=== PATIENT | female | born 1960 | race Caucasian/White ===

== ENCOUNTER → 2019-12-19 14:50 | Outpatient (CLI) | payer OTHER, SELFPAY ==
--- NOTE | ~2019-12-19 | MM_ITS ---
EXAMINATION: MM screening too BI w lauren HISTORY: Screening mammogram TECHNIQUE: Craniocaudal and mediolateral oblique 3-D tomosynthesis images were obtained and synthetic 2-D images were generated. CAD analysis was submitted and interpreted. COMPARISON: 10/11/2018, 09/15/2017, 07/06/2016 bilateral digital screening mammogram examinations BREAST PARENCHYMAL COMPOSITION: There are scattered areas of fibroglandular density. FINDINGS: Circumscribed 5 mm mass at mid to posterior depth in the outer mid right breast (craniocaud al Tomosynthesis image 25/71). Circumscribed approximately 7 mm mass in the lower inner quadrant of the right breast (critical Tomos ynthesis image 63/84) Otherwise there is no evidence of suspicious mass, calcification, or architectural distortion to sugg est malignancy in either breast. There has been no suspicious interval change. IMPRESSION: 1. Right breast masses 2. Diagnostic right mammogram and right breast ultrasound examination are recommended. BI-RADS Category 0: Incomplete: Needs additional imaging evaluation. Reviewed, dictated and finalized at location A. IMPRESSION: 1. Right breast masses 2. Diagnostic right mammogram and right breast ultrasound examination are recom mended. BI-RADS Category 0: Incomplete: Needs additional imaging evaluation.
== END ==
PROVIDERS: Visit Provider Obstetrics & Gynecology
DX: Z12.31 Encounter for screening mammogram for malignant neoplasm of breast (principal); R92.8 Other abnormal and inconclusive findings on diagnostic imaging of breast
CPT/HCPCS: 77063; 77067

== ENCOUNTER 2020-01-08 08:37 | Outpatient (CLI) | payer OTHER, SELFPAY ==
--- NOTE | ~2020-01-08 | MMUS_ITS ---
EXAMINATION: MM diagnostic mammo unilat RT, US breast RT complete HISTORY: Follow-up right breast masses TECHNIQUE: Additional 3-D tomosynthesis images of the right breast were performed and synthetic 2-D i mages were generated. CAD analysis was submitted and interpreted. High resolution right complete [address] ultrasound was performed. COMPARISON: Comparison to multiple prior studies sequentially, with oldest reviewed study dated 06/26. BREAST PARENCHYMAL COMPOSITION: Breast composed of scattered areas of fibroglandular density. FINDINGS: MAMMOGRAPHIC FINDINGS: Breast composed of scattered areas of fibroglandular density. There are scattered benign-appearing ri ght breast masses which are partially obscured by fibroglandular tissue. There are no suspicious calc ifications or architectural distortion. ULTRASOUND: Complete right breast ultrasound: There are multiple simple and complicated cysts of the right breast , largest at 3:00 measuring 6 mm maximum dimension. There is a 7 mm cyst at 4:00 near the areola. No suspicious masses to suggest malignancy. IMPRESSION: 1. No evidence for malignancy in the right breast. Benign findings. 2. Routine yearly screening mammogram and regular clinical breast examination are recommended. BI-RADS Category 2: Benign finding(s). . Reviewed, dictated and finalized at location A. IMPRESSION: 1. No evidence for malignancy in the right breast. Benign findings. 2. Routine yearly screening mammogram and regular clinical breast examination a re recommended. BI-RADS Category 2: Benign finding(s). .
== END 2020-01-08 08:38 ==
LOC: MICIMG 08:39
PROVIDERS: Visit Provider Obstetrics & Gynecology
DX: N63.10 Unspecified lump in the right breast, unspecified quadrant (principal)
CPT/HCPCS: 76641; 77065

== ENCOUNTER → 2021-03-18 16:15 | Outpatient (CLI) | payer OTHER, SELFPAY ==
--- NOTE | ~2021-03-18 | MM_ITS ---
EXAMINATION: MM screening too BI w lauren HISTORY: Screening TECHNIQUE: Craniocaudal and mediolateral oblique 3-D tomosynthesis images were obtained and synthetic 2-D images were generated. CAD analysis was submitted and interpreted. COMPARISON: Comparison to multiple prior studies sequentially, with oldest reviewed study dated 07/01. BREAST PARENCHYMAL COMPOSITION: The breasts are heterogeneously dense, which may obscure small masses . FINDINGS: There is a new mass in the upper outer quadrant of the right breast. The left breast is sta ble without evidence for malignancy. There is no evidence of suspicious mass, calcification, or archi tectural distortion to suggest malignancy in either breast. There has been no suspicious interval addy nge. IMPRESSION: 1. New right breast mass, upper outer quadrant. 2. Additional mammographic views and possible breast ultrasound are recommended. BI-RADS Category 0: Incomplete: Needs additional imaging evaluation. Reviewed, dictated and finalized at location A. 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 New right breast mass, upper outer quadrant. 2. Additional mammographic views and possible breast ultrasound are recommended . BI-RADS Category 0: Incomplete: Needs additional imaging evaluation.
== END ==
PROVIDERS: Visit Provider Obstetrics & Gynecology
DX: Z12.31 Encounter for screening mammogram for malignant neoplasm of breast (principal); R92.8 Other abnormal and inconclusive findings on diagnostic imaging of breast
CPT/HCPCS: 77063; 77067

== ENCOUNTER → 2022-05-25 07:53 | Outpatient (CLI) | payer OTHER, SELFPAY ==
--- NOTE | ~2022-05-25 | MMUS_ITS ---
EXAMINATION: MM diagnostic oto BI w lauren, US breast RT complete HISTORY: New right breast reported in upper outer quadrant on 03/18/2021 screening mammogram TECHNIQUE: Bilateral full field and right spot ML, MLO and CC 3-D tomosynthesis images were performed and synthetic 2-D images were generated. CAD analysis was submitted and interpreted. High resolution complete right breast ultrasound examination including all 4 quadrants and subareolar area was perfo rmed. COMPARISON: 03/18/2021 bilateral screening mammogram 01/08/2020 diagnostic right mammogram and complete right breast ultrasound examination 12/19/2019, 10/11/2018 bilateral screening mammogram examinations BREAST PARENCHYMAL COMPOSITION: There are scattered areas of fibroglandular density. FINDINGS: MAMMOGRAPHIC FINDINGS: Right breast: Circumscribed approximately 5.6 mm opacity with halo sign is noted in the posterior out er mid right breast, benign in appearance, likely a cyst. Occasional additional smaller nodular densi ties are suggested. Right breast complete ultrasound examination was performed. Left breast: No suspicious mass or architectural distortion, malignant calcification, skin thickening or retractio n or significant new or developing density is detected. ULTRASOUND: There are several parallel oval circumscribed cysts or septated cysts at 4:00 5 cm from the nipple, m easuring up to approximately 4.8 mm maximal dimension. No internal vascularity or posterior shadowing . 5:00 2 cm from nipple: Parallel circumscribed 2.3 x 5.8 mm and 3.3 x 4.9 mm cysts 9:00 8 cm from nipple: 4.5 x 6.7 mm cyst No suspicious mass or shadowing is detected. IMPRESSION: 1. Benign findings 2. Routine mammographic screening is recommended BI-RADS Category 2: Benign finding(s). Reviewed, dictated and finalized at location A. 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 Benign findings 2. Routine mammographic screening is recommended BI-RADS Category 2: Benign finding(s).
== END ==
PROVIDERS: PCP Obstetrics & Gynecology; Visit Provider Obstetrics & Gynecology
DX: N63.10 Unspecified lump in the right breast, unspecified quadrant (principal)
CPT/HCPCS: 76641; 77062; 77066; G0279